=== PATIENT | male | born 1960 | race Native Hawaiian/Other Pacific Islander ===

== ENCOUNTER 2022-10-27 17:55 | Outpatient (CLI) | payer OTHER ==
[2022-10-27 18:29] LABS: PLATELET COUNT 198 K/uL (142-355)
[2022-10-27 20:19] LABS: POTASSIUM 3.9 mmol/L (3.6-5.2)
== END 2022-10-27 19:30 | disposition home or self-care (01) ==
LOC: LABW 17:55
DX: B18.2 Chronic viral hepatitis C (principal)
CPT/HCPCS: 36415; 80053; 85027; 87340; 87522